=== PATIENT | male | born 1990 | race American Indian/Alaskan Native ===

== ENCOUNTER 2019-05-26 15:58 | Emergency (ER) | payer SELFPAY ==
[2019-05-26 17:57] LABS: Basophils % (Auto) 0.3 % (0.0-1.8); Eosinophils % (Auto) 0.2 % (0.0-4.3); Hematocrit 50.2 % (35.5-45.6); Hemoglobin 17.4 gm/dl (11.8-15.2); Lymphocytes # (Auto) 1.1 K/mm3 (1.2-5.4); Lymphocytes % (Auto) 13.2 % (13.4-35.0); Mean Corpuscular HGB Conc 35 % (32-34); Mean Corpuscular Volume 96 fl (84-94); Monocytes # (Auto) 0.6 K/mm3 (0.0-0.8); Platelet Count 223 K/mm3 (140-440); Red Blood Count 5.23 M/mm3 (3.65-5.03); Red Cell Distribution Width 11.9 % (13.2-15.2)
--- NOTE | 2019-05-26 18:15 | Emergency Department Report ---
HPI - General Chief Complaint: Psych Time Seen by Provider: 05/26/19 18:05 - HPI HPI: 28-year-old male presents to the emergency department via EMS from home for a mental health evaluation. The patient recently was at [facility] [place] for a mental health evaluation. He was started on Risperdal there and spent a few days inpatient before he was discharged home to start the respiratory regularly and follow up outpatient with a psychiatrist. The patient's mother, who is currently at bedside, says that he does not have any history of schizophrenia or any diagnosed psychiatric conditions. However, the patient started having episodes where he was talking to himself over the past year. Mom said that he usually was redirectable and he would "snap out of it" and began acting normal. However more recently he has been having episodes where he is not redirectable and he is yelling out. Since coming back from [place] the symptoms have worsened. The patient is heard talking to himself in different voices. Mom heard and then witnessed him hitting himself. Shortly afterwards she witnessed him come down to the kitchen, grabbed a kitchen knife, and make gestures that he was stabbing himself in the throat and saying that he wants to kill himself. During my examination with the patient, he admits to auditory hallucinations. He says there are many different voices and they are not telling him anything specifically. He does admit to suicidal ideations because of everything that is going on. He is aware that he is "scaring my mother and father." ED Past Medical Hx - Past Medical History Hx Psychiatric Treatment: (Schizophrenia) - Social History Smoking Status: Never Smoker Substance Use Type: None ED Review of Systems ROS: Stated complaint: THREATING Other details as noted in HPI Comment: All other systems reviewed and negative Constitutional: denies: chills, fever Respiratory: denies: shortness of breath Cardiovascular: denies: chest pain Gastrointestinal: denies: abdominal pain Musculoskeletal: denies: back pain Neurological: denies: headache Psychiatric: auditory hallucinations, suicidal thoughts Physical Exam - Physical Exam Vital Signs: Vital Signs 05/26/19 17:48 Temperature 98.0 F Pulse Rate 71 Respiratory 20 Rate Blood Pressure 132/84 [Right] O2 Sat by Pulse 100 Oximetry Physical Exam: GENERAL: The patient is well-developed well-nourished. HEENT: Normocephalic. Atraumatic. Patient has moist mucous membranes. EYES: Extraocular motions are intact. NECK: Supple. Trachea is midline. CHEST/LUNGS: Clear to auscultation. There is no respiratory distress noted. HEART/CARDIOVASCULAR: Regular. There is no tachycardia. There is no murmur. ABDOMEN: Abdomen is soft, nontender. Patient has normal bowel sounds. There is no abdominal distention. SKIN:Skin is warm and dry. . NEURO: The patient is awake. The patient has no motor or sensory deficits. Normal speech. MUSCULOSKELETAL: There is no tenderness or deformity. There is no limitation range of motion. There is no evidence of acute injury. PSYCH: Patient is seen talking talking to himself and responding to internal stimuli. ED Course Vital Signs 05/26/19 17:48 Temperature 98.0 F Pulse Rate 71 Respiratory 20 Rate Blood Pressure 132/84 [Right] O2 Sat by Pulse 100 Oximetry ED Medical Decision Making - Lab Data Result diagrams: 05/26/19 17:45 05/26/19 17:45 - Medical Decision Making This patient presents with suicidal ideations, responding to internal stimuli, and signs of schizophrenia. For the suicidal ideations and acute psychosis the patient has been made a 1013. At the beginning of his ED course the patient is intermittently yelling out. His labs have been unremarkable. Patient previously had a CT scan of the head done at [facility] [place] in the last week that was allegedly negative. Vital signs stable throughout his ED course. Patient is medically clear for psychiatric placement. - Differential Diagnosis schizophrenia, schizoaffective, bipolar disorder, substance abuse Critical Care Time: No Critical care attestation.: If time is entered above; I have spent that time in minutes in the direct care of this critically ill patient, excluding procedure time. ED Disposition Clinical Impression: Suicidal ideations, Acute psychosis Disposition: [id number]/TX-[id number] PSY HOSP/PSY UNIT Is pt being admited?: No Condition: Stable Referrals: PRIMARY CARE, [Primary Care Provider] - 3-5 Days Time of Disposition: 22:56
[2019-05-26 18:17] LABS: BUN/Creatinine Ratio 10; Blood Urea Nitrogen 7 mg/dL (9-20); Calcium 9.7 mg/dL (8.4-10.2); Hemolysis Index 28
[2019-05-26] MEDS ORDERED: ALPRAZolam 1 MG TAB PO ONE (19:29)
[2019-05-26 20:23] LABS: Bilirubin,Urine NEG (Negative); Blood,Urine NEG (Negative); Color,Urine Straw (Yellow); Protein,Urine <15 mg/dL mg/dL (Negative); Urobilinogen,Urine < 2.0 mg/dL (<2.0)
[2019-05-26 20:31] LABS: Amphetamine Screen,Urine PRESUMPTIVE NEGATIVE; Benzodiazepines Screen,Urine PRESUMPTIVE NEGATIVE; Cannabinoid Screen,Urine PRESUMPTIVE NEGATIVE; Cocaine Screen,Urine PRESUMPTIVE NEGATIVE; Methadone Screen,Urine PRESUMPTIVE NEGATIVE; Opiate Screen,Urine PRESUMPTIVE NEGATIVE
--- NOTE | 2019-05-27 12:27 | Consultation ---
History of Present Illness - Reason for Consult Consult date: 05/27/19 Reason for consult: suicidal ideation, psychosis - Chief Complaint Chief complaint: hallucinations, suicidal ideation - History of Present Psychiatric Illness Annette Reese is a 28y/o male patient who says he came to the hospital because he "has thoughts of suicide sometimes, and hearing voices." He is speaking at a very low tone. He is a/o x 3. He makes fair eye contact. His affect is restricted. He is dressed appropriately. He has poor hygiene. The patient says he's "not doing good." He says, "I don't want to be on suicidal watch. I'm not suicidal all the time. I just need medications." He says he hears voices that "picks at me. Saying I can't get out. I can't escape." He's motioning his hand over the side of his head. "There's something in my brain." He then tells me "I believe in God. I watch Dragon Ball Z." When asked, what did the two have to do with the other. He laughs and replied, "nothing, I just like Dragon Ball Z." The patient says he felt like "something was making him want to stab his hand." He motions his hand up and as if stabbing something. He says, "it wasn't normal. When I close my eyes, I start seeing things that are unreal." He looks down, and says, "I accidentally did something. I thought I had cancer. I told my mom." The patient denies any illicit drug use now or in the past. He denies alcohol use, but states he smokes cigarets "daily." He also denies any history of psychiatric disorder, or psych medications. he says he's never been had any suicide attempts. When informing the patient that he would need inpatient treatment he states, "I made that up about wanting to stab myself in the hand." He then says, "naw, it's the truth." REVIEW OF SYSTEMS Constitutional: Negative for weight loss ENT: Negative for stridor Respiratory: Negative for cough or hemoptysis All other systems reviewed and are negative MSE Appearance: Dressed appropriately. Poor hygiene. Behavior: Calm, cooperative. Fair eye contact Mood: "not good" Affect: Restricted Thought Process: goal directed Speech: Tangential, low tone Thought Content Suicidal: Yes Homicidal: Denies Hallucinations: Auditory/Visual (flashbacks) Delusions: None elicited Consciousness: Alert Cognition/Memory: Limited Insight/Judgment: Limited Assessment: Schizoaffective Disorder Plan Continue 1013 Medications Doxepoin 10mg po qhs Melatonin 5mg po qhs prn insomnia Risperidone 0.5mg p BID Geodon 10mg IM q4h prn agitation Sitter: Defer to primary Medical: Per primary Disposition: The patient meets the criteria for acute inpatient hospitalization. Please transfer to an acute psych facility once medically cleared. Will follow until the patient is transferred. Please call with any questions or concerns. Thank you for this consult. Medications and Allergies Allergies Allergy/AdvReac Type Severity Reaction Status Date / Time orange juice Allergy Hives Verified 05/26/19 17:35 Mental Status Exam - Vital signs Last Vital Signs Temp 97.8 F 05/27/19 07:59 Pulse 75 05/27/19 07:59 Resp 20 05/27/19 07:59 BP 126/80 05/27/19 07:59 Pulse Ox 100 05/27/19 07:59 Results Result Diagrams: 05/26/19 17:45 05/26/19 17:45 Abnormal lab results 05/26/19 05/26/19 05/26/19 Range/Units 17:45 17:45 17:45 RBC (3.65-5.03) M/mm3 Hgb (11.8-15.2) gm/dl Hct (35.5-45.6) % MCV (84-94) fl MCH (28-32) pg MCHC (32-34) % RDW (13.2-15.2) % Lymph % (Auto) (13.4-35.0) % Lymph # (1.2-5.4) K/mm3 Seg Neutrophils % (40.0-70.0) % BUN 7 L (9-20) mg/dL Creatinine 0.7 L (0.8-1.5) mg/dL Salicylates < 0.3 L (2.8-20.0) mg/dL Acetaminophen < 5.0 L (10.0-30.0) ug/mL 01/28/20 Range/Units 17:45 RBC 5.23 H (3.65-5.03) M/mm3 Hgb 17.4 H (11.8-15.2) gm/dl Hct 50.2 H (35.5-45.6) % MCV 96 H (84-94) fl MCH 33 H (28-32) pg MCHC 35 H (32-34) % RDW 11.9 L (13.2-15.2) % Lymph % (Auto) 13.2 L (13.4-35.0) % Lymph # 1.1 L (1.2-5.4) K/mm3 Seg Neutrophils % 79.3 H (40.0-70.0) % BUN (9-20) mg/dL Creatinine (0.8-1.5) mg/dL Salicylates (2.8-20.0) mg/dL Acetaminophen (10.0-30.0) ug/mL All other labs normal.
[2019-05-27] MEDS ORDERED: ZIPRASIDONE MESYLATE 20 MG VIAL IM PRN (12:49)
[2019-05-27] MEDS: risperiDONE 0.25 MG TAB PO SCH (14:33)
[2019-05-28] MEDS: DOXEPIN 10 MG CAP PO SCH ×2 (00:39→23:00)
[2019-05-28] MEDS: risperiDONE 0.25 MG TAB PO SCH ×3 (00:39→23:00)
--- NOTE | 2019-05-28 15:00 | Progress Note ---
Subjective - Reason for Consult Consult date: 05/28/19 Reason for consult: hallucinations, SI - Chief Complaint Chief complaint: During my interview with the patient today, he was lying down. Asleep. Easily arouses. The patient was led to another room to maintain confidentiality. He is a/o x 3. He is much quieter than yesterday. He is speaking in a low tone. He make poor eye contact. He says "I feel a little bit better." He says he's still having a "little hallucinations." The patient is attempting to explain but having some difficulty getting it out. He is motioning his hand back and forth over the side of his head, and says, "the voices they are in my head." He says he thought he "was seeing things when I first woke up." When asking the patient what was it he was seeing, he states "I'm not sure. It might have been my classes was not right." When asked about suicidal thoughts, the patient replies, "subsided, I guess. I don't know." REVIEW OF SYSTEMS Constitutional: Negative for weight loss ENT: Negative for stridor Respiratory: Negative for cough or hemoptysis All other systems reviewed and are negative MSE Appearance: Dressed appropriately. Behavior: Calm, cooperative. Poor eye contact Mood: "better" Affect: Flat Thought Process: Disorganized Speech: low tone Thought Content Suicidal: Yes Homicidal: Denies Hallucinations: Auditory/Visual Delusions: None elicited Consciousness: Alert Cognition/Memory: Limited Insight/Judgment: Limited Assessment: Schizoaffective Disorder Plan Continue 1013 Medications Increased Risperidone 1mg po BID Sitter: Defer to primary Medical: Per primary Disposition: The patient meets the criteria for acute inpatient hospitalization. Please transfer to an acute psych facility once medically cleared. Will follow until the patient is transferred. Please call with any questions or concerns. Thank you for this consult. Mental Status Exam - Vital signs Last Vital Signs Temp 97.7 F 05/28/19 08:00 Pulse 70 05/28/19 08:00 Resp 16 05/28/19 08:00 BP 112/58 05/28/19 08:00 Pulse Ox 98 05/28/19 08:00
[2019-05-29] MEDS: risperiDONE 1 MG TAB PO SCH ×2 (11:13→22:13)
[2019-05-29] MEDS: risperiDONE 0.25 MG TAB PO SCH (12:06)
--- NOTE | 2019-05-29 12:15 | Progress Note ---
Subjective - Reason for Consult Consult date: 05/29/19 Reason for consult: psychiatric assessment - Chief Complaint Chief complaint: During my interview with the patient today, the patient is alert and oriented 3, able to meet needs known, he is dressed appropriately for the occasion, he maintains intermittent eye contact. The patient reports that he is hearing voices making strange noises, he denies visual hallucination. The patient denies suicidal or homicidal ideation. The patient does report depression stating that he is very sad and his depression is mainly from goals and ambition that he would like to achieve and taking care of his family. The patient reports that he is really stressed he also reports having racing thoughts mainly in the evenings nothing specific is just thinking about everything. The patient reports that at times he just believe he is just having a mental breakdown.The patient contract for safety. He reports that he is compliant with his medications. REVIEW OF SYSTEMS Constitutional: Negative for weight loss ENT: Negative for stridor Respiratory: Negative for cough or hemoptysis All other systems reviewed and are negative MSE Appearance: Dressed appropriately. Behavior: Calm, cooperative. Poor eye contact Mood: " much better" Affect: Flat Thought Process: Disorganized Speech: low tone Thought Content Suicidal: denies Homicidal: Denies Hallucinations: Auditory Delusions: None elicited Consciousness: Alert Cognition/Memory: Limited Insight/Judgment: Limited Assessment: Schizoaffective Disorder Plan Continue 1013 Medications continue treatment regimen Sitter: Defer to primary Medical: Per primary Disposition: The patient meets the criteria for acute inpatient hospitalization. Please transfer to an acute psych facility once medically cleared. Will follow until the patient is transferred. Please call with any questions or concerns. Thank you for this consult. Mental Status Exam - Vital signs Last Vital Signs Temp 97.6 F 05/29/19 07:00 Pulse 83 05/29/19 07:00 Resp 18 05/29/19 07:00 BP 129/63 05/29/19 07:00 Pulse Ox 96 05/29/19 07:00
[2019-05-29] MEDS: MELATONIN 5 MG TAB PO PRN (22:13)
[2019-05-29] MEDS: DOXEPIN 10 MG CAP PO SCH (22:13)
[2019-05-30] MEDS: risperiDONE 1 MG TAB PO SCH ×2 (10:58→21:52)
--- NOTE | 2019-05-30 13:01 | Progress Note ---
Subjective - Reason for Consult Consult date: 05/30/19 Reason for consult: psychiatric assessment - Chief Complaint Chief complaint: During my interview with the patient today, the patient is alert and oriented 3, able to meet needs known, he is dressed appropriately for the occasion, he maintains intermittent eye contact. patient reports that he sleeping and eating. The patient denies suicidal or homicidal ideation,stating I'm feeling much better and my thoughts are better. He denies auditory and visual hallucinations.the patient reports his mood as fine. The patient states, I'm taking my medications am feeling much better. REVIEW OF SYSTEMS Constitutional: Negative for weight loss ENT: Negative for stridor Respiratory: Negative for cough or hemoptysis All other systems reviewed and are negative MSE Appearance: Dressed appropriately. Behavior: Calm, cooperative, limited eye contact Mood: " doing good" Affect: labile Thought Process: goal-direct Speech: low tone Thought Content Suicidal: denies Homicidal: Denies Hallucinations: denies Delusions: None elicited Consciousness: Alert Cognition/Memory: Limited Insight/Judgment: Limited Assessment: Schizoaffective Disorder Plan Continue 1013 Medications continue treatment regimen Sitter: Defer to primary Medical: Per primary Disposition: The patient meets the criteria for acute inpatient hospitalization. Please transfer to an acute psych facility once medically cleared. Will follow until the patient is transferred. Please call with any questions or concerns. Thank you for this consult. Mental Status Exam - Vital signs Last Vital Signs Temp 97.8 F 05/30/19 10:21 Pulse 85 05/30/19 10:21 Resp 20 05/30/19 10:21 BP 133/86 05/30/19 10:21 Pulse Ox 99 05/30/19 10:21
[2019-05-30] MEDS: MELATONIN 5 MG TAB PO PRN (21:52)
[2019-05-30] MEDS: DOXEPIN 10 MG CAP PO SCH (21:53)
[2019-05-31] MEDS: risperiDONE 1 MG TAB PO SCH ×2 (09:40→22:02)
--- NOTE | 2019-05-31 15:01 | Progress Note ---
Subjective - Reason for Consult Consult date: 05/31/19 Reason for consult: psychiatric assessment - Chief Complaint Chief complaint: During my interview with the patient today, the patient is alert and oriented 3, able to meet needs known, he is dressed appropriately for the occasion, he maintains intermittent eye contact. patient reports that he sleeping and eating. The patient denies suicidal or homicidal ideation. The patient report his mood as getting better. The patient denies auditory and visual hallucination. the patient reports that his depression is getting better. He reports that he is sleeping better and he has appetite. REVIEW OF SYSTEMS Constitutional: Negative for weight loss ENT: Negative for stridor Respiratory: Negative for cough or hemoptysis All other systems reviewed and are negative MSE Appearance: Dressed appropriately. Behavior: Calm, cooperative, limited eye contact Mood: " doing good" Affect: labile Thought Process: goal-direct Speech: low tone Thought Content Suicidal: denies Homicidal: Denies Hallucinations: denies Delusions: None elicited Consciousness: Alert Cognition/Memory: Limited Insight/Judgment: Limited Assessment: Schizoaffective Disorder Plan Continue 1013 Medications continue treatment regimen Sitter: Defer to primary Medical: Per primary Disposition: The patient meets the criteria for acute inpatient hospitalization. Please transfer to an acute psych facility once medically cleared. Will follow until the patient is transferred. Please call with any questions or concerns. Thank you for this consult. Mental Status Exam - Vital signs Last Vital Signs Temp 98.2 F 05/31/19 07:53 Pulse 79 05/31/19 07:53 Resp 18 05/31/19 07:53 BP 123/82 05/31/19 07:53 Pulse Ox 98 05/31/19 07:53
[2019-05-31] MEDS: DOXEPIN 10 MG CAP PO SCH (22:02)
[2019-06-01 09:58] VITALS: BP 125/82
[2019-06-01] MEDS: risperiDONE 1 MG TAB PO SCH (11:00)
== END 2019-06-01 18:45 ==
LOC: ED 15:58 → EEVIPCON 15:58 → ED 06-01 18:45
DX: R45.851 Suicidal ideations (principal); F23 Brief psychotic disorder
CPT/HCPCS: 36415; 80048; 80307; 80320; 81001; 85025; G0480